=== PATIENT | male | born 1995 | race Caucasian/White ===

== ENCOUNTER 2023-03-25 18:08 | Emergency (ER) | payer SELFPAY ==
[~2023-03-25] VITALS: Ht 170.2 cm; Wt 62.3 kg
[~2023-03-25 18:08] MED LIST: NAPROXEN500 MG PO; VIBRAMYCIN100 M2 PO
[2023-03-25] MEDS ORDERED: VALACYCLOVIR HCL1 GM PO (18:57)
[2023-03-25] MEDS ORDERED: valACYclovir 500 MG TAB PO ONE (19:10)
[2023-03-25] MEDS ORDERED: NAPROXEN 250 MG/TAB PO ONE (19:10)
[2023-03-25 19:15] LABS: URINE BILIRUBIN - DIPSTICK Negative (NEGATIVE); URINE BLOOD DIPSTICK Negative (NEGATIVE); URINE GLUCOSE - DIPSTICK Negative (NEGATIVE); URINE KETONE Negative (NEGATIVE); URINE LEUK ESTERASE Negative (NEGATIVE); URINE NITRITE - DIPSTICK Negative (Negative); URINE PROTEIN - DIPSTICK Negative (NEG-TRACE); URINE SPECIFIC GRAVITY 1.015; URINE UROBILINOGEN - DIPSTICK 0.2 E.U./dL (0.2)
[2023-03-25 19:17] LABS: URINE COLOR Yellow
[2023-03-25 20:10] VITALS: BP 132/77
== END 2023-03-25 20:12 | disposition home or self-care (01) | DRG 728 ==
LOC: ED 18:08
PROVIDERS: Nurse Practitioner
DX: A60.01 Herpesviral infection of penis (principal); B19.20 Unspecified viral hepatitis C without hepatic coma; Z72.0 Tobacco use

== ENCOUNTER 2023-04-13 08:33 | Emergency (ER) | payer SELFPAY ==
[~2023-04-13] VITALS: Ht 170.2 cm; Wt 61.2 kg
[2023-04-13] VITALS (10 sets, daily range): BP systolic 107–138; BP diastolic 63–117
[~2023-04-13 08:33] MED LIST changes: +VALACYCLOVIR HCL1 GM PO
[2023-04-13] MEDS ORDERED: ONDANSETRON HCl 4 MG/2 ML SDV IV ONE (08:40)
[2023-04-13] MEDS ORDERED: VALACYCLOVIR500 MG PO (09:30)
[2023-04-13] MEDS ORDERED: ACETAMINOPHEN 500 MG TAB PO ONE (09:55)
[2023-04-13] MEDS ORDERED: SODIUM CHLORIDE 0.9% 1,000 ML IV ONE ×2 (09:55)
[2023-04-13] MEDS ORDERED: KETOROLAC TROMETHAMINE 30 MG/ML SDV IV ONE (09:55)
[2023-04-13] MEDS ORDERED: cefTRIAXone SODIUM 2 GM in SODIUM CHLORIDE 0.9% 100 ML IV ONE (09:55)
[2023-04-13 09:56] LABS: BASO% 0.2 % (0-3); EOS% 0.2 % (0-8); IMMATURE GRANULOCYTES 0.6 % (0.0-5.0); LYMPH% 3.9 % (15-41); MEAN CELL VOLUME 98.5 fL CALC (80.0-100.0); MEAN CORPUSCULAR HGB 33.2 pG CALC (26.0-32.0); MEAN CORPUSCULAR HGB CONC 33.7 g/dL CAL (32.0-36.0); MONO% 7.6 % (2-13); NEUT# 10.44 thou/uL (1.82-7.42); NEUT% 87.5 % (42-76); RED BLOOD COUNT 4.7 mill/uL (4.70-6.10); RED CELL DISTRI WIDTH 10.4 % (11.5-15.5)
[2023-04-13 10:08] LABS: BUN 17 mg/dL (9-20); BUN/CREATININE RATIO 23 (12-20 (CALC)); CARBON DIOXIDE 25 mmol/l (22-30); CHLORIDE 100 mmol/l (95-108); CREATININE 0.7 mg/dL (0.7-1.3); GFR FOR AFR.AMER. > 60 ML/MIN (>=60 (CALC)); GFR OTHER RACES > 60 ML/MIN (>=60 (CALC)); POTASSIUM 3.7 mmol/l (3.5-5.1); SODIUM 135 mmol/l (137-146)
[2023-04-13 10:09] LABS: ALBUMIN 4.3 g/dL (3.2-5.0); ANION GAP 14 (6-22 (CALC)); BILIRUBIN, TOTAL 0.8 mg/dL (0.2-1.3); LIPASE 127 u/l (23-300); SGOT/AST 84 u/l (17-59)
[2023-04-13 10:12] LABS: ALKALINE PHOSPHATASE 124 u/l (38-126)
[2023-04-13 10:13] LABS: HEMATOCRIT 46.3 % (39.0-50.0); HEMOGLOBIN 15.6 g/dl (14.0-18.0)
[2023-04-13 10:56] LABS: URINE BLOOD DIPSTICK Negative (NEGATIVE); URINE GLUCOSE - DIPSTICK 100 mg/dL (NEGATIVE); URINE KETONE Trace mg/dL (NEGATIVE); URINE LEUK ESTERASE Negative (NEGATIVE); URINE NITRITE - DIPSTICK Negative (Negative); URINE PROTEIN - DIPSTICK 100 mg/dL (NEG-TRACE)
[2023-04-13 10:57] LABS: URINE COLOR Yellow; URINE EPITHELIAL CELLS FEW EPI/hpf (0-FEW)
[2023-04-13 10:58] LABS: URINE MUCUS MODERATE hpf (NONE-FEW)
[2023-04-13] MEDS ORDERED: METRONIDAZOLE500 MG PO (11:45)
[2023-04-13] MEDS ORDERED: CIPROFLOXACN500 MG PO (11:45)
== END 2023-04-13 13:35 | disposition home or self-care (01) | DRG 392 ==
LOC: ED 08:33
PROVIDERS: Family Medicine
DX: R10.32 Left lower quadrant pain (principal); F17.210 Nicotine dependence, cigarettes, uncomplicated; Z20.822 Contact with and (suspected) exposure to COVID-19
CPT/HCPCS: Q9967